=== PATIENT | male | born 1980 | race Two or more races ===

== ENCOUNTER 2022-07-05 21:46 | Emergency (ER) | payer BC, OTHER ==
[~2022-07-05] VITALS: Ht 180.3 cm; Wt 99.8 kg
--- NOTE | 2022-07-05 22:20 | NUR ---
Pt is noted in bed alert, responsive as he came from home C/O Chest pain on and off [id number]. Pt care continue as MD is on the bedside.
[2022-07-05] MEDS ORDERED: KETOROLAC TROMETHAMINE 15 MG/ML VIAL ONE (22:27)
[2022-07-05] MEDS ORDERED: KETOROLAC TROMETHAMINE INJ 30 MG/ML VIAL IV ONE (22:30)
[2022-07-05] MEDS ORDERED: CT SWABBABLE VALVE TRANS SET 1 EA INFUS.SET MC ONE (22:42)
[2022-07-05] MEDS ORDERED: IOHEXOL-300 100 ML VIAL IV ONE (22:42)
[2022-07-05] MEDS ORDERED: IV NS 0.9% 250 ML IV ONE (22:42)
--- NOTE | 2022-07-05 22:58 | NUR ---
Pt care continue as IV inserted to Left AC #20G and Toradol 15mg IVP given as ordered.
--- NOTE | 2022-07-05 23:00 | NUR ---
Pt is noted off the unit to CT for CTA. Pt care continue.
--- NOTE | 2022-07-05 23:30 | NUR ---
Pt is noted back from CT . Pt care contiune as awaits CTA of the chest results.
[2022-07-06 00:04] LABS: BASOPHILS # (AUTO) 0.1 K/uL (0.0-0.2); BASOPHILS % (AUTO) 1.2 % (0.0-2.0); EOSINOPHILS % (AUTO) 5.7 % (0.0-6.0); HEMATOCRIT 45 % (39-51); HEMOGLOBIN 14.7 g/dL (13.5-17.5); LYMPHOCYTES % (AUTO) 28.3 % (20.0-44.0); MEAN CORPUSCULAR HGB CONC 33 g/dl (31.0-36.0); MEAN CORPUSCULAR VOLUME 90 fL (80-96); MONOCYTES # (AUTO) 0.6 K/uL (0.1-1.30); MONOCYTES % (AUTO) 8.9 % (2.0-12.0); NEUTROPHILS # (AUTO) 3.9 K/uL (1.8-8.9); NEUTROPHILS % (AUTO) 55.9 % (43.0-81.0); PLATELET COUNT (AUTO) 276 K/uL (150-450); RED BLOOD CELL COUNT(AUTO) 4.96 MIL/uL (4.5-6.0)
[2022-07-06 00:38] LABS: CALCIUM, SERUM 9.8 mg/dL (8.5-10.1); CARBON DIOXIDE 27 mmol/L (21-32); CHLORIDE 103 mmol/L (98-107); CREATININE 1.1 mg/dL (0.6-1.3); GLUCOSE 93 mg/dL (74-106); POTASSIUM 4.3 mmol/L (3.5-5.1); SODIUM SERUM 136 mmol/L (136-145); UREA NITROGEN, BLOOD 14 mg/dL (7-18)
--- NOTE | 2022-07-06 02:00 | NUR ---
Pt is resting with no C/O pain at these. Pt care continue.
--- NOTE | 2022-07-06 05:04 | NUR ---
IV HOMER REMOVED
--- NOTE | 2022-07-06 05:04 | NUR ---
Patient discharged to home in stable condition. Written and verbal after care instructions given. Patient verbalizes understanding of instruction.
[2022-07-06 05:05] VITALS: BP 128/58
== END 2022-07-06 05:05 | disposition home or self-care (01) ==
LOC: ER 21:49
DX: R07.89 Other chest pain (principal); E78.00 Pure hypercholesterolemia, unspecified
CPT/HCPCS: 99285; 96374; 71275; 93005 ×2; 85025; 80048; 83605; 36415 ×2; 84484 ×2; J7050; Q9967; J1885